=== PATIENT | female | born 1975 | race Caucasian/White ===

== ENCOUNTER 2016-04-27 21:30 | Emergency (ER) | payer BC ==
[2016-04-27 21:43] VITALS: BP 123/70
[2016-04-27] MEDS ORDERED: Albuterol 2.5 MG/3 ML NEB.SOL* (0.083%) INH ONE (21:46)
[2016-04-27] MEDS ORDERED: Ipratropium 0.5MG/2.5ML NEB* 0.5 MG/2.5 ML NEB.SOLN INH ONE (21:46)
--- NOTE | 2016-04-27 22:15 | UC ---
Asthma HPI - HPI Summary HPI Summary: The patient comes in today for: 1. Asthma exacerbation: Onset: 2-3 days ago. Palliative/provocative: Nebulizer helped her. Quality: Wheezing. Region: Chest. Severity: 6/10 initially, after DuoNeb 2/10 Time: Constant. Associated symptoms: Fevers: None. Chest pain: None. Dyspnea: Present, but improved after DuoNeb. Asthma: 20 years. Treatment: Advair 100/50, Singulair one a day, Albuteral MDI, prn, Last ER visit-6-8 months. Last routine asthma visit, one year ago. LMP: IUD, MIrena. Smoker: NOne. Oral steroids: "Long time ago." * - History of Current Complaint Chief Complaint: UCRespiratory Stated Complaint: COUGH Time Seen by Provider: 04/27/16 21:37 Hx Obtained From: Patient Hx Last Menstrual Period: IUD ?: No - Allergy/Home Medications Allergies/Adverse Reactions: Allergies Allergy/AdvReac Type Severity Reaction Status Date / Time Penicillins [PCN] Allergy Vomiting Verified 04/27/16 21:43 Home Medications: Home Medications Albuterol 2.5MG/3ML (0.083%)* [Ventolin 2.5 MG/3 ML NEB.TERESO*] PRN 04/27/16 [ History] guaiFENesin ER TAB [Mucinex*] 600 mg PO PRN 04/27/16 [History] PMH/Surg Hx/FS Hx/Imm Hx Previously Healthy: No Endocrine History Of: Reports: Thyroid Disease, Hypothyroidism Denies: Diabetes, Hyperthyroidism, Dyslipidemia Cardiovascular History Of: Denies: Cardiac Disorders, Hypertension, Pacemaker/ICD, Myocardial Infarction , Congestive Heart Failure, Atrial Fibrillation, Deep Vein Thrombosis, Bleeding Disorders Respiratory History Of: Reports: Asthma Denies: COPD, Bronchitis, Pneumonia, Pulmonary Embolism GI/ History Of: Denies: Gastroesophageal Reflux, Ulcer, Gastrointestinal Bleed, Gall Bladder Disease, Kidney Stones, Diverticulitis, Renal Disease, Urosepsis Neurological History Of: Denies: TIA, CVA, Dementia, Seizures, Migraine Psychological History Of: Reports: Anxiety, Depression Denies: Bipolar Disorder, Schizophrenia, Post Traumatic Stress Disorder Cancer History Of: Denies: Lung Cancer, Colorectal Cancer, Breast Cancer, Prostate Cancer, Cervical Cancer Other History Of: Negative For: HIV, Hepatitis B, Hepatitis C, Anticoagulant Therapy - Surgical History Surgical History: None - Family History Known Family History: Positive: Hypertension Negative: Cardiac Disease, Diabetes - Social History Occupation: Employed Full-time Alcohol Use: Rare Substance Use Type: None Smoking Status (MU): Never Smoked Tobacco Have You Smoked in the Last Year: No Review of Systems Constitutional: Negative Skin: Negative Eyes: Negative ENT: Negative Respiratory: Shortness Of Breath, Cough Cardiovascular: Negative Gastrointestinal: Negative Genitourinary: Negative All Other Systems Reviewed And Are Negative: Yes Physical Exam Triage Information Reviewed: Yes Appearance: Well-Appearing, No Pain Distress, Well-Nourished, Ill-Appearing, Other: - No audible wheezing when I initially saw her (after the DuoNeb) when walking into the room. Vital Signs: Initial Vital Signs Temp 99.2 F 04/27/16 21:39 Pulse 82 04/27/16 21:39 Resp 20 04/27/16 21:39 BP 123/70 04/27/16 21:39 Pulse Ox 99 04/27/16 21:39 Vital Signs Reviewed: Yes Eyes: Positive: Conjunctiva Clear. Negative: Discharge ENT: Positive: Hearing grossly normal. Negative: Pharyngeal erythema, Nasal congestion, Nasal drainage, TM bulging, TM dull, TM red, Tonsillar swelling, Tonsillar exudate Dental: Negative: Gross Decay/Caries @, Dental Fracture @ Neck: Positive: Supple, Nontender, No Lymphadenopathy. Negative: Nuchal Rigidity Respiratory: Positive: Chest non-tender, No respiratory distress, No accessory muscle use, Wheezing, Other: - Inspiration/expiration cycle was good, minimally shortened when I ausculated her lungs (after the DuoNeb).. Negative: Lungs clear, Crackles, Rhonchi Cardiovascular: Positive: RRR, No Murmur Abdomen Description: Positive: Nontender, No Organomegaly, Soft. Negative: Distended, Guarding Musculoskeletal: Positive: Strength Intact, ROM Intact Neurological: Positive: Alert, Muscle Tone Normal Psychological: Positive: Age Appropriate Behavior, Consolable Skin: Negative: rashes, breakdown Asthma Course/Dx - Course Course Of Treatment: The patient states that she has much improved. Her treatment options were discussed and she only would agree to increasing her Advair to 250/50 and adding Combivent along with a prednisone taper. - Differential Dx/Diagnosis Provider Diagnoses: asthma exacerbation. Discharge - Discharge Plan Condition: Stable Disposition: HOME Patient Education Materials: Asthma (ED), Moderate and Severe Persistent Asthma (ED) Referrals: Fabiana Murray MD [Primary Care Provider] - 1 Week (Follow up with your primary care provider early next week to see how well you are doing. IF you get worse, go to the ER. )
[2016-04-27] MEDS ORDERED: predniSONE TAB* 20 MG PO ONE (22:26)
== END 2016-04-27 22:45 | disposition home or self-care (01) ==
LOC: UCEAST 21:30
DX: J45.901 Unspecified asthma with (acute) exacerbation (principal); Z88.0 Allergy status to penicillin
CPT/HCPCS: 99212; G0463; J7512; J7644

== ENCOUNTER 2017-05-22 07:11 | Emergency (ER) | payer BC ==
[2017-05-22 07:34] VITALS: BP 115/74
--- NOTE | 2017-05-22 08:13 | RAD ---
HISTORY: Cough COMPARISONS: None VIEWS: 4: Frontal dual-energy and lateral views of the chest. FINDINGS: CARDIOMEDIASTINAL SILHOUETTE: The cardiomediastinal silhouette is normal. FRANSISCO: The fransisco are normal. PLEURA: The costophrenic angles are sharp. No pleural abnormalities are noted. LUNG PARENCHYMA: There is hyperinflation with flattening of the diaphragm and expansion of the retrosternal airspace. ABDOMEN: The upper abdomen is clear. There is no subphrenic gas. BONES AND SOFT TISSUES: No bone or soft tissue abnormalities are noted. OTHER: None. IMPRESSION: 1. HYPERINFLATION WHICH CAN BE SEEN WITH COPD OR REACTIVE AIRWAY DISEASE. 2. NO ACTIVE CARDIOPULMONARY DISEASE.
--- NOTE | 2017-05-23 18:41 | UC ---
Asad See Nilda, scribed for Nehemiah Moore MD on 05/22/17 at 0734 . FLU HPI - HPI Summary HPI Summary: This patient is a 41 year old F presenting to [facility] with a chief complaint of constant flu-like symptoms for the past 3 days. Symptoms aggravated and alleviated by nothing. Pain (aching) rated 5/10 in severity. Patient reports sore throat, headache, myalgia, sneezing, rhinorrhea, and productive cough. Pt states recent sick contacts with kids at home. PMHx includes asthma. - History of Current Complaint Stated Complaint: CONGESTED,COUGH,SORE THROAT Time Seen by Provider: 05/22/17 07:16 Hx Obtained From: Patient Hx Last Menstrual Period: IUD Onset/Duration: Sudden Onset, Lasting Days, Still Present Severity Initially: Moderate Pain Intensity: 5 Pain Scale Used: 0-10 Numeric Associated Signs & Symptoms: Positive: Myalgia, Cough, Sore Throat, Headache Related Hx: Possible Flu/Infectious Exposure - Allergy/Home Medications Allergies/Adverse Reactions: Allergies Allergy/AdvReac Type Severity Reaction Status Date / Time MS Penicillins [PCN] Allergy Vomiting Verified 05/22/17 07:28 PMH/Surg Hx/FS Hx/Imm Hx Respiratory History: Asthma Other History Of: Negative For: HIV, Hepatitis B, Hepatitis C, Anticoagulant Therapy - Surgical History Surgical History: None - Family History Known Family History: Positive: Hypertension Negative: Cardiac Disease, Diabetes - Social History Lives: With Family Alcohol Use: Rare Substance Use Type: None Smoking Status (MU): Never Smoked Tobacco Have You Smoked in the Last Year: No Review of Systems ENT: Sore Throat, Nasal Discharge, Other - sneezing Respiratory: Cough Musculoskeletal: Myalgia Neurological: Headache All Other Systems Reviewed And Are Negative: Yes Physical Exam Triage Information Reviewed: Yes Vital Signs: Initial Vital Signs Temp 99.3 F 05/22/17 07:30 Pulse 68 05/22/17 07:30 Resp 18 05/22/17 07:30 BP 115/74 05/22/17 07:30 Pulse Ox 98 05/22/17 07:30 Vital Signs Reviewed: Yes - Additional Comments GENERAL: Patient is a well developed and nourished F who is lying comfortable in the stretcher. Patient is not in any acute respiratory distress. HEAD AND FACE: Normocephalic EYES: PERRLA, EOMI x 2. EARS: Hearing grossly intact. MOUTH: Erythematous pharynx. Runny nose with clear discharge. NECK: Supple, trachea is midline, no adenopathy, no JVD, no carotid bruit. CHEST: Symmetric, no tenderness at palpation LUNGS: Crackles in both bases. CVS: Regular rate and rhythm, S1 and S2 present, no murmurs or gallops appreciated. ABDOMEN: Soft, non-tender. Bowel sounds are normal. No abdominal abnormal pulsations. EXTREMITIES: Full ROM in all major joints, no edema, no cyanosis or clubbing. NEURO: Alert and oriented x 3. No acute neurological deficits. Speech is normal and follows commands. SKIN: Dry and warm Diagnostics - Radiology CXR Radiology Interpretation Completed By: Radiologist - CXR, per radiologist, reveals 1. Hyperinflation which can be seen with COPD or reactive airway disease. 2. No active cardiopulmonary disease. Dr. Moore has reviewed this radiology report. Re-Evaluation - Re-Evaluation First Eval Re-Evaluation Time: 08:10 Comment: Reviewed lab results and D/C plan with pt. Flu Course/Dx - Course Course Of Treatment: This patient is a 41 year old F presenting to [facility] with a chief complaint of constant flu-like symptoms for the past 3 days. Symptoms aggravated and alleviated by nothing. Pain (aching) is rated 5/10 in severity. Patient reports sore throat, headache, myalgia, sneezing, rhinorrhea, and productive cough. Pt states recent sick contacts with kids at home. PMHx includes asthma. Labs reveal Influenza B is positive. CXR pending. CXR, per radiologist, reveals 1. Hyperinflation which can be seen with COPD or reactive airway disease. 2. No active cardiopulmonary disease. Dr. Moore has reviewed this radiology report. Pt will be D/C with a Dx of Influenza and a prescription for Tamiflu. I discussed all the findings and test results with the patient. Pt was instructed to return to the urgent care or go to ER immediately if any of the symptoms return or worsens. Plan of care was discussed with the patient and pt understands and agrees. All questions were answered to patient satisfaction. There were no further complaints or concerns. - Differential Dx/Diagnosis Differential Diagnosis/HQI/PQRI: Bronchitis, Broncholiolitis, Influenza, Upper Respiratory Infection Provider Diagnoses: Influenza Discharge - Discharge Plan Condition: Stable Disposition: HOME Prescriptions: Oseltamivir CAP* [Tamiflu CAP*] 75 mg PO BID #10 cap Patient Education Materials: Influenza (ED) Forms: *Work Release Referrals: Fabiana Murray MD [Primary Care Provider] - 3 Days Additional Instructions: Return to the urgent care or go to ER immediately if any of the symptoms return or worsens. The documentation as recorded by the Asad dillon Nilda accurately reflects the service I personally performed and the decisions made by Oscar hartman Walter, MD.
== END 2017-05-22 08:12 | disposition home or self-care (01) ==
LOC: UCEAST 07:11
DX: J11.1 Influenza due to unidentified influenza virus with other respiratory manifestations (principal); J45.909 Unspecified asthma, uncomplicated; Z88.0 Allergy status to penicillin
CPT/HCPCS: 71046; 87502; 99212; G0463

== ENCOUNTER 2017-06-27 12:41 | Emergency (ER) | payer BC ==
[2017-06-27 13:27] VITALS: BP 116/63
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
--- NOTE | 2017-06-27 13:33 | UC ---
Laceration HPI - History Of Current Complaint Chief Complaint: UCTrauma Stated Complaint: TOE INJURY Time Seen by Provider: 06/27/17 13:28 Hx Last Menstrual Period: has IUD Pain Intensity: 2 - Allergies/Home Medications Allergies/Adverse Reactions: Allergies Allergy/AdvReac Type Severity Reaction Status Date / Time Penicillins AdvReac Vomiting Verified 06/27/17 13:18 Home Medications: Home Medications Fluticasone-Salmeterol 250-50* [Advair Diskus 250-50*] 1 puff INH DAILY [History Confirmed 06/27/17] PMH/Surg Hx/FS Hx/Imm Hx Other History Of: Negative For: HIV, Hepatitis B, Hepatitis C, Anticoagulant Therapy - Surgical History Surgical History: None - Family History Known Family History: Positive: Hypertension Negative: Cardiac Disease, Diabetes - Social History Alcohol Use: Rare Substance Use Type: None Smoking Status (MU): Never Smoked Tobacco Have You Smoked in the Last Year: No Physical Exam Vital Signs: Initial Vital Signs Temp 99.3 F 06/27/17 13:20 Pulse 70 06/27/17 13:20 Resp 20 06/27/17 13:20 BP 116/63 06/27/17 13:20 Pulse Ox 100 06/27/17 13:20 Discharge - Discharge Plan Referrals: Fabiana Murray MD [Primary Care Provider] -
--- NOTE | 2017-06-27 14:07 | RAD ---
INDICATION: Left great toe injury. TECHNIQUE: 3 views of the left great toe were obtained. FINDINGS: There is diffuse soft tissue swelling in the left great toe. There is a faint oblique radiolucent line extending through the lateral corner at the base of the distal phalanx to the proximal articular margin most consistent with a nondisplaced fracture. No other acute fractures are seen. There appears to be a chronic fracture of the medial sesamoid bone. IMPRESSION: NONDISPLACED INTRA-ARTICULAR FRACTURE LATERAL BASE OF THE DISTAL PHALANX.
== END 2017-06-27 14:55 | disposition home or self-care (01) ==
LOC: UCEAST 12:41
DX: S92.425A Nondisplaced fracture of distal phalanx of left great toe, initial encounter for closed fracture (principal); W50.0XXA Accidental hit or strike by another person, initial encounter; Y93.75 Activity, martial arts; Y92.89 Other specified places as the place of occurrence of the external cause; E07.9 Disorder of thyroid, unspecified; J45.909 Unspecified asthma, uncomplicated; F41.9 Anxiety disorder, unspecified; Z88.0 Allergy status to penicillin
CPT/HCPCS: 99211; G0463

== ENCOUNTER 2018-10-11 13:20 | Emergency (ER) | payer BC ==
[2018-10-11] MEDS ORDERED: diPHENhydraMINE PO* 50 MG PO ONE (13:24)
[2018-10-11] MEDS ORDERED: methylPREDNISolone 125 MG* 2 ML VIAL IV ONE (13:25)
[2018-10-11] MEDS ORDERED: diPHENhydraMINE IV* 50 MG/ML 1 ml VIAL (BENADRYL) IM ONE (13:25)
[2018-10-11] MEDS ORDERED: diPHENhydraMINE IV* 50 MG/ML 1 ml VIAL (BENADRYL) IV ONE (13:27)
[2018-10-11] MEDS ORDERED: Famotidine IV* 10 MG/ML 2 ML (20 mg) IV SLOW PU ONE (13:28)
[2018-10-11] MEDS ORDERED: EPINEPHRINE 1 MG/ML 1 ML VIAL IM ONE (13:28)
[2018-10-11] MEDS ORDERED: NS 0.9% 1000 ML** 1,000 ML IV ONE (13:31)
--- NOTE | 2018-10-11 13:47 | UC ---
Allergic Reaction HPI - HPI Summary HPI Summary: Patient is a 42 year old female, who present today to the urgent care with a bee sting and an allergic reaction 1 hour [employer]. She has bee hives and has been stung multiple times in the past. She had a mild allergic reaction after bee sting 2 weeks ago, but that resolved on its own. Today she got stung on her left cheek and started to have itching followed by hives on her abdominal and and back followed by swelling of her eyes and face and that's when she came in. Denies any chest pain or shortness of breath, dizziness but feels that her throat is slightly tight, denies any difficulty breathing. f. - History of Current Complaint Stated Complaint: BEE STING Time Seen by Provider: 10/11/18 13:23 Hx Obtained From: Patient Hx Last Menstrual Period: has IUD - Allergies/Home Medications Allergies/Adverse Reactions: Allergies Allergy/AdvReac Type Severity Reaction Status Date / Time Penicillins AdvReac Vomiting Verified 10/11/18 13:23 Home Medications: Home Medications DOXYcycline CAP(*) [DOXYcycline 100MG CAP(*)] 100 mg PO DAILY 10/11/18 [History Confirmed 10/11/18] buPROPion TAB* [Wellbutrin TAB*] 75 mg PO BID 10/11/18 [History Confirmed ] PMH/Surg Hx/FS Hx/Imm Hx - Additional Past Medical History Additional PMH: Past Medical History : Sarcoid, hypothyroidism Past Surgical History: Biopsy of skin for thyroid sarcoid Family History : non contributory Social History : Occasional alcohol, non smoker, no drug use. has bee hives, Previously Healthy: Yes Other History Of: Negative For: HIV, Hepatitis B, Hepatitis C, Anticoagulant Therapy - Surgical History Surgical History: None - Family History Known Family History: Positive: Hypertension Negative: Cardiac Disease, Diabetes - Social History Alcohol Use: Rare Substance Use Type: None Smoking Status (MU): Never Smoked Tobacco Have You Smoked in the Last Year: No Review of Systems All Other Systems Reviewed And Are Negative: Yes Constitutional: Positive: Negative Skin: Positive: Rash - Hives, Other - Itching Eyes: Positive: Other - Swollen eyelids ENT: Positive: Other - Swollen ears some tightness in throat Respiratory: Positive: Negative. Negative: Shortness Of Breath Cardiovascular: Positive: Negative. Negative: Palpitations, Chest Pain Gastrointestinal: Positive: Negative Genitourinary: Positive: Negative Motor: Positive: Negative Neurovascular: Positive: Negative Musculoskeletal: Positive: Negative Neurological: Positive: Negative Psychological: Positive: Negative Is Patient Immunocompromised?: No Physical Exam - Summary Physical Exam Summary: Physical Exam: Vital signs reviewed Const: Appears well. No signs of apparent distress present. Alert and oriented x 3. Musculo: Walks with a normal gait. Head/Face: Atraumatic, normocephalic on inspection. Eyes: EOMI and PERRLA in both eyes. Conjunctivae clear. No discharge noted, swelling of the eyelids noted ENT: Hearing normal, swelling and redness of the ears Respiratory: Respirations are unlabored. Lungs clear to auscultation bilaterally, no wheezing , rhonchi or rales noted . CVS: Regular rate and Rhythm, S1S2 normal , no murmurs identified. Extremities: Peripheral circulation is grossly normal. Pulses 2+ Abdomen : Soft non tender , nondistended , Bowel sounds present . No guarding , rebound tenderness or rigidity noted. Skin: No lesions or rash located on the upper extremities or on the lower extremities. Neuro: Cranial nerves II to XII intact, motor and sensory intact. DTR Intact bilaterally. Mood is normal. Affect is normal. Triage Information Reviewed: Yes Vital Signs Reviewed: Yes Allergic Reaction Course/Dx - Course Course Of Treatment: During the visit today, she was given 2 doses of epi 0.3 mg along with Benadryl 50mg IV and Pepcid 40 mg IV. She was also given Solu-Medrol 125 mg IV with improvement in her symptoms. Upon reevaluation her blood pressure was 139/77 and oxygen saturation at 99% . Her eyelids were less swollen and she reports decreased tightness in her throat. Point reevaluation she had completed her 1 L of normal saline IV fluids and she was feeling much better. Vitals stable. We discussed precautions in future and I will prescribe the medications that she should take for next week- Zantac and Benadryl. I will also prescribe EpiPen. . I will prescribe the medication to the pharmacy . She will follow with primary care doctor in 2 days. Patient expressed understanding . - Differential Dx/Diagnosis Differential Diagnosis/HQI/PQRI: Anaphylaxis Provider Diagnosis: Anaphylactic reaction Discharge - Sign-Out/Discharge Documenting (check all that apply): Patient Departure All imaging exams completed and their final reports reviewed: No Studies - Discharge Plan Condition: Stable Disposition: HOME Prescriptions: diPHENhydraMINE PO* [Benadryl PO 50 MG CAP*] 50 mg PO Q6H PRN 7 Days #30 cap PRN Reason: Allergy Symptoms EPINEPHrine [Epipen 2-Harmeet] 0.3 mg IM SEE INSTRUCTIONS PRN #1 inj PRN Reason: Allergy Symptoms Ranitidine TAB (NF) [Zantac TAB (NF)] 150 mg PO BID 7 Days #14 tab Patient Education Materials: Insect Bite or Sting (ED), Anaphylaxis (ED) Referrals: Ming Quinonez MD [Primary Care Provider] - 2 Days Additional Instructions: Please start taking medications as prescribed for the next week. Follow up with PCP in 2 days EPipen has been prescribed and keep it handy. Return to ER if symptoms get worse. - Billing Disposition and Condition Condition: STABLE Disposition: Home
[2018-10-11 14:45] VITALS: BP 127/66
== END 2018-10-11 15:42 | disposition home or self-care (01) ==
LOC: UCEAST 13:20
DX: T63.441A Toxic effect of venom of bees, accidental (unintentional), initial encounter (principal); Y92.9 Unspecified place or not applicable; E03.9 Hypothyroidism, unspecified; Z88.0 Allergy status to penicillin
CPT/HCPCS: 96361; 96372; 96374; 96375; 99212; G0463; J1200; J2930

== ENCOUNTER 2018-11-12 15:31 | Emergency (ER) | payer BC ==
[2018-11-12] MEDS ORDERED: NS 0.9% 1000 ML** 1,000 ML BOLUS ONE (15:38)
[2018-11-12] MEDS ORDERED: EPINEPHRINE 1 MG/ML 1 ML VIAL IM ONE (15:38)
[2018-11-12] MEDS ORDERED: Famotidine IV* 10 MG/ML 2 ML (20 mg) IV SLOW PU ONE (15:39)
[2018-11-12] MEDS ORDERED: methylPREDNISolone 125 MG* 2 ML VIAL IV ONE (15:39)
--- NOTE | 2018-11-12 16:21 | UC ---
Allergic Reaction HPI - HPI Summary HPI Summary: 43 yo female presents one hour after a bee sting to her left cheek she took 100 mg of benadryl complains of diffuse pruritis and throat tightness no CP or SOB Had an anaphylatic rx to bee sting about 2 weeks ago Afraid to give herself epi She is a assisted living housekeeper - History of Current Complaint Chief Complaint: UCAllergicReaction Stated Complaint: BEE STING, ALLERGIC Hx Obtained From: Patient Hx Last Menstrual Period: 2 WEEKS AGO Onset/Duration: Sudden Onset Severity Initially: Mild Severity Currently: Moderate Pain Intensity: 0 Pain Scale Used: 0-10 Numeric Character: Swelling - at sting site, Pruritus, Hives Aggravating Factor(s): Nothing Alleviating Factor(s): Nothing Associated Signs And Symptoms: Positive: Rash, Throat Tightening. Negative: Abdominal Pain, Chest Pain, Cough Wheezing, Diaphoresis, Difficulty Breathing, Hoarseness, Lightheadedness, Nausea, Syncope, Vomiting - Related Hx Possible Reaction To: Insect Prior Episode Dx as Allergic Reaction to: Same/Other: anaphylatic reaction to bee sting - Allergies/Home Medications Allergies/Adverse Reactions: Allergies Allergy/AdvReac Type Severity Reaction Status Date / Time bee venom protein (honey bee) Allergy ITCHING, Verified 11/12/18 15:54 HIVES Penicillins AdvReac Vomiting Verified 11/12/18 15:54 PMH/Surg Hx/FS Hx/Imm Hx Previously Healthy: Yes - sarcoidosis Other History Of: Negative For: HIV, Hepatitis B, Hepatitis C, Anticoagulant Therapy - Surgical History Surgical History: None - Family History Known Family History: Positive: Hypertension, Non-Contributory Negative: Cardiac Disease, Diabetes - Social History Alcohol Use: Occasionally Substance Use Type: None Smoking Status (MU): Never Smoked Tobacco Have You Smoked in the Last Year: No Review of Systems All Other Systems Reviewed And Are Negative: Yes Constitutional: Positive: Negative Skin: Positive: Rash Eyes: Positive: Negative ENT: Positive: Negative Respiratory: Positive: Negative Cardiovascular: Positive: Negative Gastrointestinal: Positive: Negative Genitourinary: Positive: Negative Motor: Positive: Negative Musculoskeletal: Positive: Negative Neurological: Positive: Negative Psychological: Positive: Negative Physical Exam Triage Information Reviewed: Yes Appearance: Well-Appearing, No Pain Distress, Well-Nourished Vital Signs: Initial Vital Signs Temp 100.2 F 11/12/18 15:40 Pulse 84 11/12/18 15:40 Resp 16 11/12/18 15:40 BP 124/66 11/12/18 15:40 Pulse Ox 98 11/12/18 15:40 Vital Signs Reviewed: Yes Eyes: Positive: Conjunctiva Clear ENT: Positive: Hearing grossly normal. Negative: Nasal congestion, Nasal drainage, Tonsillar swelling, Tonsillar exudate, Dental tenderness, Sinus tenderness, Uvula midline Dental Exam: Normal Neck: Positive: Supple, Nontender, No Lymphadenopathy Respiratory: Positive: Lungs clear, Normal breath sounds, No respiratory distress, No accessory muscle use Cardiovascular: Positive: RRR, No Murmur Abdomen Description: Positive: Nontender, No Organomegaly. Negative: CVA Tenderness (R), CVA Tenderness (L) Musculoskeletal: Positive: ROM Intact, No Edema Neurological: Positive: Alert Psychological Exam: Normal Skin: Positive: Rashes - urticaria/diffuse erthyema Images Head: 1 - sting site 2 - periorbital edema Re-Evaluation - Re-Evaluation First Eval Re-Evaluation Time: 16:15 Change: Improved Comment: minimal itching. 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 Discharge - Sign-Out/Discharge Documenting (check all that apply): Patient Departure All imaging exams completed and their final reports reviewed: No Studies - Discharge Plan Condition: Stable Disposition: HOME Prescriptions: predniSONE [Deltasone 20 MG TAB] 40 mg PO DAILY #10 tab Patient Education Materials: Anaphylaxis (ED) Referrals: Raleigh Germain MD [Medical Doctor] - As Soon As Possible Derrick Barnard MD [Medical Doctor] - As Soon As Possible Ming Quinonez MD [Primary Care Provider] - Additional Instructions: I will be here until 10 PM Call for any questions or concerns [phone] It is very important for you to see an health outreach worker about your bees sting allergy. Two local health outreach worker's contact information is provided take 50 mg of benadryl every 4-6 hours for 4 doses then as needed for itching ice sting site periodically recheck for any worsening of symptoms - Billing Disposition and Condition Condition: STABLE Disposition: Home
[2018-11-12 17:42] VITALS: BP 108/78
== END 2018-11-12 17:31 | disposition home or self-care (01) ==
LOC: UCEAST 15:31
DX: T63.441A Toxic effect of venom of bees, accidental (unintentional), initial encounter (principal); T78.2XXA Anaphylactic shock, unspecified, initial encounter; W57.XXXA Bitten or stung by nonvenomous insect and other nonvenomous arthropods, initial encounter; Y92.89 Other specified places as the place of occurrence of the external cause; Y99.0 Civilian activity done for income or pay; Z88.0 Allergy status to penicillin; Z91.030 Bee allergy status
CPT/HCPCS: 96361; 96372; 96374; 96375; 99212; G0463; J2930

== ENCOUNTER 2024-03-01 08:52 | Inpatient (IN) ==
[2024-03-01 11:53] LABS: ABS Basophils 0.1 10^3/uL (0.0-0.1); ABS Eosinophils 0.1 10^3/uL (0.0-0.5); ABS Lymphocytes 0.5 10^3/uL (1.0-4.8); ABS Monocytes 0.8 10^3/uL (0.0-0.9); ABS Neutrophils 6.9 10^3/uL (1.5-7.6); Eosinophil % 1.5 %; Hematocrit 39.9 % (35-45); Hemoglobin 13.9 g/dL (11.5-14.3); Lymphocyte % 6.3 %; Mean Corpuscular Hemoglobin 33.4 pg (27-33); Mean Corpuscular Hgb Conc 34.9 g/dL (31-36); Mean Corpuscular Volume 95.8 fL (80-97); Mean Platelet Volume 8.2 fL (7.5-11.2); Platelet Count 277 10^3/uL (150-450); Red Blood Count 4.17 10^6/uL (3.63-4.92); Red Cell Distribution Width 12.7 % (12-17); White Blood Count 8.4 10^3/uL (3.8-11.8)
[2024-03-01 12:32] LABS: ALT 13 U/L (7-52); AST 17 U/L (13-39); Albumin 4.4 g/dL (3.2-5.2); Albumin/Globulin Ratio 1.9 (1-3); Alkaline Phosphatase 96 U/L (35-149); Anion Gap 7 mmol/L (2-16); Blood Urea Nitrogen 13 mg/dL (6-24); C Reactive Protein 76.87 mg/L (<8.01); CO2 Carbon Dioxide 26 mmol/L (22-32); Calcium 9.6 mg/dL (8.6-10.3); Chloride 105 mmol/L (101-111); Creatinine, Serum 0.84 mg/dL (0.51-0.95); Globulin 2.3 g/dL (2-4); Glucose 71 mg/dL (70-100); Sodium 138 mmol/L (135-145); Total Bilirubin 0.5 mg/dL (0.2-1.0); Total Protein 6.7 g/dL (6.4-8.9); eGFR CKD-EPI 85.7 (>60)
[2024-03-01] MEDS: Vancomycin 1,000 MG in NS 0.9% 250 ml 250 ML IVPB ONE (13:11)
[2024-03-01] MEDS ORDERED: Vancomycin per Pharmacy 1 EA NOTE FOLLOW UP SCH (14:00)
[2024-03-01 14:27] LABS: HCG Pregnancy < 0.60 mIU/mL
[2024-03-01] MEDS: Iohexol 300 (CONTRAST) 10 ML SDV IV ONE (14:41)
[2024-03-01] MEDS: DULoxetine DR 20 mg CAP PO SCH (21:36)
[2024-03-02] MEDS: Vancomycin 1000 MG in NS 0.9% 250 ML IVPB SCH (00:32)
[2024-03-02 06:20] LABS: ABS Eosinophils 0.1 10^3/uL (0.0-0.5); ABS Lymphocytes 0.5 10^3/uL (1.0-4.8); ABS Monocytes 0.7 10^3/uL (0.0-0.9); Hematocrit 36.7 % (35-45); Hemoglobin 12.7 g/dL (11.5-14.3); Lymphocyte % 7.7 %; Mean Corpuscular Hemoglobin 33.1 pg (27-33); Mean Corpuscular Hgb Conc 34.7 g/dL (31-36); Mean Corpuscular Volume 95.3 fL (80-97); Mean Platelet Volume 8.3 fL (7.5-11.2); Platelet Count 264 10^3/uL (150-450); Red Blood Count 3.85 10^6/uL (3.63-4.92); Red Cell Distribution Width 12.9 % (12-17); White Blood Count 6.3 10^3/uL (3.8-11.8)
[2024-03-02 06:41] LABS: Calcium 8.8 mg/dL (8.6-10.3); Creatinine, Serum 0.84 mg/dL (0.51-0.95); Magnesium 1.8 mg/dL (1.9-2.7); Potassium 4.6 mmol/L (3.5-5.0); eGFR CKD-EPI 85.7 (>60)
[2024-03-02] MEDS: Multivitamins/Minerals TAB PO SCH (08:18)
[2024-03-02] MEDS: Magnesium Sulfate 2 gm BAG 2 GM/50 ML BAG IVPB ONE (18:53)
[2024-03-02] MEDS: Enoxaparin 40 MG/0.4 ML SYR SUBCUT SCH (20:09)
[2024-03-03] MEDS: Vancomycin Trough Check NOTE FOLLOW UP ONE (16:30)
[2024-03-03] MEDS ORDERED: Zosyn per Pharmacy NOTE FOLLOW UP SCH (18:00)
[2024-03-03] MEDS: Piperacillin/Tazobac 3.375 BAG 3.375 GM/100 ML BAG IV ONE (18:03)
[2024-03-03] MEDS ORDERED: Propofol 10 MG/ML 20 ML BTL ONE (19:02)
[2024-03-03] MEDS ORDERED: Ondansetron 4 mg VIAL 2 MG/ML 2 ml VIAL ONE (19:02)
[2024-03-03] MEDS ORDERED: Lidocaine 2% PF 5 ML VIAL ONE (19:02)
[2024-03-03] MEDS ORDERED: Succinylcholine 200 mg VIAL 20 mg/ml 10 ml VIAL (200 mg) ONE (19:02)
[2024-03-03] MEDS ORDERED: Dexamethasone IV 4 MG/ML VIAL 1 ml VIAL ONE (19:02)
[2024-03-03] MEDS ORDERED: Midazolam 2 mg/2 ml VIAL 1 mg/ml 2 ml VIAL (2 mg) ONE (19:03)
[2024-03-03] MEDS ORDERED: fentaNYL 100 mcg/2 ml 50 MCG/ML VIAL ONE (19:03)
[2024-03-03] MEDS ORDERED: Acetaminophen IV 1 GM/100ML 1,000 MG/100 ML BAG IV ONE (19:08)
[2024-03-03] MEDS ORDERED: fentaNYL 100 mcg/2 ml 50 MCG/ML VIAL IV PRN (19:15)
[2024-03-03] MEDS ORDERED: Naloxone 0.4 mg VIAL 0.4 mg/ml 1 ml VIAL IV PRN (19:15)
[2024-03-03] MEDS ORDERED: Prochlorperazine 5 mg/ml 2 ml VIAL (10 mg) IV PRN (19:15)
[2024-03-03] MEDS ORDERED: Ondansetron 4 mg VIAL 2 MG/ML 2 ml VIAL IV PRN (19:15)
[2024-03-03] MEDS: ZOSYN 3.375 GM Q8H per EXTENDED INFUSION IV SCH (22:05)
[2024-03-04 06:49] LABS: Creatinine, Serum 0.74 mg/dL (0.51-0.95); eGFR CKD-EPI 99.7 (>60)
[2024-03-05 06:46] LABS: Creatinine, Serum 0.79 mg/dL (0.51-0.95); eGFR CKD-EPI 92.2 (>60)
[2024-03-05 14:07] VITALS: BP 130/86
[2024-03-06] MEDS ORDERED: Vancomycin Trough Check NOTE FOLLOW UP ONE (11:30)
== END 2024-03-05 17:44 | disposition home or self-care (01) | DRG 383 ==
LOC: EDHOLD 08:52 → ED 08:52 → MEDTELE 14:29
PROVIDERS: ADMIT Student in an Organized Health Care Education/Training Program; ATTEND Hospitalist